=== PATIENT | male | born 1990 | race Caucasian/White ===

== ENCOUNTER 2017-07-30 16:07 | Emergency (ER) | payer SELFPAY ==
[~2017-07-30] VITALS: Ht 185.4 cm; Wt 54.4 kg
[~2017-07-30 16:07] MED LIST: CEPH500C PO; HYDR-1231 PO; HYDR-3820 PO; NAPR-243 PO; TRM50T PO
--- NOTE | 2017-07-30 18:47 | ED Back Pain ---
General Chief Complaint: Back Problems Stated Complaint: LOWER BACK PAIN Nursing Triage Note: Stomach pain starting early Sunday am, low back pain, stuffy/runny nose, weakness. Nursing Sepsis Screen: No Definite Risk Source of Information: Patient Exam Limitations: No Limitations History of Present Illness Time Seen by Provider: 18:39 Initial Comments Patient presents to ER by private conveyance with chief complaint of back pain that starts deep in his back and radiates sometimes to his left lower quadrant of abdomen. Says the pain is not associated with his spine or with any injury or recent trauma. She never had appendicitis before. He has no nausea vomiting or constipation. He says last 2 days is when this started and is also had some loose stools. No blood in stool no black tarry stool. He says he has no recent travel outside the [place] or sick contacts. He denies dysuria or history of kidney stones. He denies discharge. States she's taken yesterday and today off from work and needs a note. Allergies and Home Medications Allergies Coded Allergies: No Known Drug Allergies (Unverified , 10/01/15) Home Medications Hydrocodone/Acetaminophen 1 Each Tablet, 1-2 EA PO Q4H PRN for PAIN for 30 Days Prescribed by: ANJUM MONSON on 10/03/15 0807 Constitutional: No chills, No diaphoresis EENTM: No ear pain, No blurred vision Respiratory: No cough, No dyspnea on exertion Cardiovascular: No chest pain, No palpitations Gastrointestinal: see HPI, No constipation, No diarrhea, No nausea, No vomiting Genitourinary: No discharge, No dysuria Musculoskeletal: No muscle stiffness, No neck pain Skin: No pruritus, No rash Past Oooczru-Gaqxpe-Uetsyg Hx Patient Social History Alcohol Use: Occasionally Uses Recreational Drug Use: Yes (tobacco, etoh on occ) Smoking Status: Current Everyday Smoker Recent Foreign Travel: No Contact w/Someone Who Travel: No Recent Infectious Disease Expo: No Immunizations Up To Date Tetanus Booster (TDap): Less than 5yrs Surgeries History of Surgeries: No Respiratory History of Respiratory Disorde: No Cardiovascular History of Cardiac Disorders: No Neurological History of Neurological Disord: No Reproductive System Hx Reproductive Disorders: No Sexually Transmitted Disease: No HIV/AIDS: No Gastrointestinal History of Gastrointestinal Di: No Musculoskeletal History of Musculoskeletal Dis: Yes Musculoskeletal Disorders: Fractures Endocrine History of Endocrine Disorders: No Cancer History of Cancer: No Psychosocial History of Psychiatric Problem: Yes Behavioral Health Disorders: ADD/ADHD Integumentary History of Skin or Integumenta: No Blood Transfusions History of Blood Disorders: No Adverse Reaction to a Blood Tr: No Family Medical History Significant Family History: No Pertinent Family Hx Family Medial History: Patient reports no known family medical history. Physical Exam Vital Signs Vital Sign - Last 12Hours 07/30/17 17:40 Temp 98.4 Pulse 69 Resp 20 B/P (MAP) 104/59 Pulse Ox 98 O2 Delivery Room Air Capillary Refill : Less Than 3 Seconds General Appearance: WD/WN, Mild Distress HEENT: PERRL/EOMI, Pharynx Normal Neck: Non Tender, Supple Cardiovascular: Regular Rate, Rhythm, No Edema Respiratory: Chest Non Tender, Lungs Clear Gastrointestinal: Normal Bowel Sounds, No Organomegaly, Soft, Tenderness (left lower quadrant and left flank) Extremity: Normal Capillary Refill, Normal Inspection, Non Tender Neurologic/Psychiatric: Alert, Oriented x3 Skin: Normal Color, Warm/Dry Progress/Results/Core Measures Results/Orders Vital Signs/I&O Vital Sign - Last 12Hours 07/30/17 07/30/17 17:40 18:58 Temp 98.4 98.4 Pulse 69 69 Resp 20 20 B/P (MAP) 104/59 Pulse Ox 98 98 O2 Delivery Room Air Blood Pressure Mean: 74 Progress Note : Time: 05:00 Progress Note Patient was agreement with workup plan but when lab went back to draw his blood the patient had already left AMA. Departure Impression Impression: Primary Impression: Back pain Qualified Codes: M54.5 - Low back pain Additional Impression: Abdominal pain Qualified Codes: R10.32 - Left lower quadrant pain Disposition: Condition: Against Medical Advice Departure-Patient Inst. Decision time for Depature: 19:00 Referrals: [place],LOCAL PHYSICIAN (PCP/Family) Primary Care Physician PABLO BRENNAN Jul 30, 2017 18:47
[2017-07-30 18:58] VITALS: BP 104/59
--- OUTSIDE RECORDS SUMMARY | 2017-07-31 05:12 | XMS REPORT ---
Author Author CYNTHIA WEINER [facility] Address [address] [place] [address] Care Team Providers Care Shoe Parts Caser Name Role Phone CYNTHIA WEINER Unavailable PROBLEMS Type Condition ICD9-CM Code [id number] Code Onset Dates Condition Status SNOMED Code Problem Bipolar disorder, unspecified F31.9 Active 36960600 Problem Generalized anxiety disorder F41.1 Active 16998063 Assessment Bipolar disorder, unspecified F31.9 Jun, Active [id number] ALLERGIES No Known Allergies SOCIAL HISTORY No smoking Hx information available PLAN OF CARE VITAL SIGNS MEDICATIONS No Known Medications RESULTS No Results PROCEDURES Procedure Date Ordered Related Diagnosis Body Site Psych diagnostic evaluation, established patient Jul 04, 2016 IMMUNIZATIONS No Known Immunizations
--- OUTSIDE RECORDS SUMMARY | 2017-07-31 05:12 | XMS REPORT ---
Author Author FABIAN MARC [facility] eClinicalWorks Address Unknown Phone Unavailable Care Team Providers Care Laborer Aquatic Life Name Role Phone FABIAN MARC Unavailable Allergies No Known Allergies Problems Problem Type Condition Code Onset Dates Condition Status Problem Social anxiety disorder F40.10 Active Problem Anxiety F41.9 Active Problem Intermittent explosive disorder in adult F63.81 Active Problem Bipolar disorder, unspecified F31.9 Active Problem Generalized anxiety disorder F41.1 Active Medications No Known Medications Results No Known Results Summary Purpose eClinicalWorks Submission
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
--- OUTSIDE RECORDS SUMMARY | 2017-07-31 05:13 | XMS REPORT ---
Author Author CYNTIHA WEINER [facility] eClinicalWorks Address Unknown Phone Unavailable Care Team Providers Care Materials Scheduler Name Role Phone CYNTHIA WEINER Unavailable Allergies No Known Allergies Problems Problem Type Condition Code Onset Dates Condition Status Problem Generalized anxiety disorder F41.1 Active Assessment Bipolar disorder, unspecified F31.9 Active Problem Bipolar disorder, unspecified F31.9 Active Assessment Generalized anxiety disorder F41.1 Active Medications No Known Medications Procedures Procedure Coding System Code Date Psychotherapy, patient &/family, 30 minutes, established patient CPT-4 50012 Jul 18, 2016 Results No Known Results Summary Purpose eClinicalWorks Submission
--- OUTSIDE RECORDS SUMMARY | 2017-07-31 05:13 | XMS REPORT ---
Author Author SAÚL NIÑO Organization e[employer] Address Unknown Phone Unavailable Care Team Providers Care Job Counselor Name Role Phone SAÚL NIÑO CP Unavailable Allergies, Adverse Reactions, Alerts Substance Reaction Event Type N.K.D.A. Info Not Available Non Drug Allergy Problems Problem Type Condition Code Onset Dates Condition Status Problem Social anxiety disorder F40.10 Active Problem Anxiety F41.9 Active Problem Intermittent explosive disorder in adult F63.81 Active Assessment Intermittent explosive disorder in adult F63.81 Active Assessment Anxiety F41.9 Active Problem Bipolar disorder, unspecified F31.9 Active Problem Generalized anxiety disorder F41.1 Active Medications Medication Code System Code Instructions Start Date End Date Status Dosage Vistaril [facility] [address]-98 25 MG Orally every 8 hrs Jul 25, 2016 1 capsule as needed Depakote ER [facility] [address]-77 500 MG Orally Once a day at bedtime Jul 25, 2016 1 tablet Procedures Procedure Coding System Code Date Office Visit, Est Pt., Level 3 CPT-4 46541 Jul 25, 2016 Vital Signs Date/Time: Jul 25, 2016 Cardiac Monitoring Heart Rate 92 bpm Weight 120.9 lbs Height 72.0 in BMI 16.40 Index Blood Pressure Diastolic 61 mmHg Blood Pressure Systolic 95 mmHg Results No Known Results Summary Purpose eClinicalWorks Submission
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
== END 2017-07-30 18:58 | disposition left against medical advice (07) ==
LOC: EDUNIT# 16:07 → ER 16:09
DX: M54.5 Low back pain (principal); R10.32 Left lower quadrant pain; F90.9 Attention-deficit hyperactivity disorder, unspecified type; F17.200 Nicotine dependence, unspecified, uncomplicated; Z87.81 Personal history of (healed) traumatic fracture
CPT/HCPCS: 99281

== ENCOUNTER 2018-04-15 09:52 | Emergency (ER) | payer SELFPAY ==
[~2018-04-15] VITALS: Ht 190.5 cm; Wt 54.4 kg
[2018-04-15 09:58] VITALS: BP 0/0
== END 2018-04-15 09:58 | disposition left against medical advice (07) ==
LOC: EDUNIT# 09:52 → ER 09:53
DX: R68.84 Jaw pain (principal); V18.4XXA Pedal cycle driver injured in noncollision transport accident in traffic accident, initial encounter
CPT/HCPCS: 99283

== ENCOUNTER 2018-07-01 15:15 | Emergency (ER) | payer SELFPAY ==
[~2018-07-01] VITALS: Ht 190.5 cm; Wt 59.2 kg
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
--- NOTE | 2018-07-01 17:02 | Diagnostic Imaging Report ---
INDICATION: Numbness of the ankles. COMPARISON: 10/01/2015. FINDINGS: Three views of the left ankle were obtained. There is no acute fracture or dislocation. No focal osseous lesions are seen. The surrounding soft tissue structures are unremarkable. There are no radiopaque foreign bodies. IMPRESSION: 1. No acute fracture or dislocation in the left ankle. Dictated by: Dictated on workstation # [id number]
--- NOTE | 2018-07-01 17:06 | Diagnostic Imaging Report ---
INDICATION: Left foot numbness. FINDINGS: Three views of the left foot show no fracture, dislocation or radiopaque foreign object. IMPRESSION: Negative left foot. Dictated by: Dictated on workstation # [id number]
[2018-07-01 17:15] VITALS: BP 121/78
== END 2018-07-01 17:10 | disposition home or self-care (01) ==
LOC: EDUNIT# 15:15 → ER 15:16
DX: S90.32XA Contusion of left foot, initial encounter (principal); F90.9 Attention-deficit hyperactivity disorder, unspecified type; F10.10 Alcohol abuse, uncomplicated; X58.XXXA Exposure to other specified factors, initial encounter
CPT/HCPCS: 73610; 73630

== ENCOUNTER 2019-07-29 06:30 | Emergency (ER) | payer SELFPAY ==
[~2019-07-29] VITALS: Ht 185 cm; Wt 68.0 kg
[2019-07-29] MEDS ORDERED: ALPRAZolam 0.25 MG (XANAX) TAB PO ONE (07:00)
[2019-07-29] MEDS ORDERED: TETANUS,DIPTH,PERTUSS P/F (BOOSTRIX) 0.5 ML VIAL IM ONE (07:00)
[2019-07-29] MEDS ORDERED: CEPHALEXIN 250 MG (KEFLEX) CAP PO ONE (07:00)
[2019-07-29] MEDS ORDERED: CEPH-507 PO ×2 (07:02→07:09)
--- NOTE | 2019-07-29 07:03 | ED General ---
General Chief Complaint: Upper Extremity Stated Complaint: BOTH HANDS SWOLLEN,LAC ON LEFT PINKIE Source of Information: Patient Exam Limitations: No Limitations History of Present Illness Date Seen by Provider: Jul 29, 2019 Time Seen by Provider: 06:45 Initial Comments This 29-year-old man presents to the emergency room with complaints of pain and swelling in his hands, particularly the left hand. He has a laceration from a machete on his left fifth finger that was acquired accidentally last night. The pain and swelling of the left hand has started since then. He has a nodular area of erythema and discomfort along the left wrist as well. He denies any fevers. He has rather agitated and highly irritable. He reports being released from assisted recently. He has been without his psychiatric medication since then. He states they are available to roller picker at the pharmacy but he has not picked them up yet. Patient arrived with multiple knives in his possession. Allergies and Home Medications Allergies Coded Allergies: No Known Drug Allergies (Unverified , 10/01/15) Home Medications Cephalexin 500 Mg Capsule, 500 MG PO QID Prescribed by: BILL DUFFY on 07/29/19 0709 Hydrocodone/Acetaminophen 1 Each Tablet, 1-2 EA PO Q4H PRN for PAIN Prescribed by: ANJUM MONSON on 10/03/15 0807 Patient Home Medication List Home Medication List Reviewed: Yes Review of Systems Review of Systems Constitutional: no symptoms reported EENTM: no symptoms reported Respiratory: no symptoms reported Cardiovascular: no symptoms reported Gastrointestinal: no symptoms reported Genitourinary: no symptoms reported Musculoskeletal: no symptoms reported Skin: see HPI Psychiatric/Neurological: See HPI Hematologic/Lymphatic: No Symptoms Reported Immunological/Allergic: no symptoms reported Past [id number]-[id number] Hx Past Med/Social Hx: Reviewed and Corrections made Patient Social History Alcohol Beverage of Choice: Beer Type Used: Cigarettes Recent Foreign Travel: No Contact w/Someone Who Travel: No Recent Hopitalizations: No Immunizations Up To Date Tetanus Booster (TDap): Less than 5yrs Seasonal Allergies Seasonal Allergies: No Past Medical History Surgeries: No Respiratory: No Cardiac: No Neurological: No Reproductive Disorders: No Sexually Transmitted Disease: No HIV/AIDS: No Gastrointestinal: No Musculoskeletal: Yes Fractures Endocrine: No Cancer: No Psychosocial: Yes ADD/ADHD, Bipolar, Schizophrenia Integumentary: No Blood Disorders: No Adverse Reaction/Blood Tranf: No Family Medical History Patient reports no known family medical history. No Pertinent Family Hx Physical Exam Vital Signs Vital Signs - First Documented 07/29/19 06:43 Temp 36.7 Pulse 75 Resp 20 B/P (MAP) 141/94 (110) Pulse Ox 98 Capillary Refill : Height, Weight, BMI Height: 6'3.00" Weight: 130lbs. 7.0oz. 59.853837nz; 15.43 BMI Method:Stated General Appearance: WD/WN, Anxious, Thin HEENT: PERRL/EOMI, Normal ENT Inspection Neck: Normal Inspection Respiratory: Lungs Clear, Normal Breath Sounds, No Accessory Muscle Use Cardiovascular: Regular Rate, Rhythm, No Edema, No Murmur, Normal Peripheral Pulses Extremity: Other (Mild erythema and swelling of the left hand. Approximately 1 cm laceration on the distal fifth finger. There is an area of nodular erythema and tenderness about 2-3 cm in diameter on the wrist. No fluctuance to suggest abscess) Neurologic/Psychiatric: Alert, Oriented x3, No Motor/Sensory Deficits, tip mender II- XII Norm as Tested, Other (Agitated, anxious) Skin: Normal Color, Warm/Dry, Other (See extremity exam above.) Progress/Results/Core Measures Suspected Sepsis SIRS Temperature: Pulse: Respiratory Rate: Blood Pressure / Mean: Results/Orders My Orders Orders - BILL LEON MD Alprazolam Tablet (Xanax Tablet) (07/29/19 07:00) Dipht,Pertuss(Acell),Tet Adult (Boostrix (07/29/19 07:00) Cephalexin Capsule (Keflex Capsule) (07/29/19 07:00) Vital Signs/I&O Capillary Refill : Progress Note : Progress Note Knives were confiscated and held at the nurses station during the ER visit. Xanax was given for anxiety and agitation. [place] police were called in to be on standby due to patient's agitation. He did not seem predictively and did arrive to the ER with knives. We were able to calm the patient with verbal reassurance. A tetanus booster was administered. He was treated with Keflex for cellulitis. Patient departed without incident. Departure Impression Primary Impression: Laceration of finger Qualified Codes: S61.217A - Laceration without foreign body of left little finger without damage to nail, initial encounter Additional Impressions: Cellulitis of left hand Agitation Disposition: 01 HOME, SELF-CARE Condition: Improved Departure-Patient Inst. Decision time for Depature: 07:01 Referrals: [facility] (PCP) Primary Care Physician SUMEET GARCIA (Family) Primary Care Physician Patient Instructions: Cellulitis and Erysipelas (Skin Infections) Add. Discharge Instructions: Complete the entire course of your antibiotic as prescribed. Return to care if you have worsening symptoms despite taking the antibiotic, especially if you develop fevers over 100. Please fill your usual medications and start them as soon as possible. Return to care if you have any other problems or concerns. All discharge instructions reviewed with patient and/or family. Voiced understanding. Scripts Cephalexin (Keflex) 500 Mg Capsule 500 MG PO QID, #30 CAP Prov: BILL LEON MD 07/29/19 Copy Copies To 1: LEIDY LAZARO JOSHUA T MD Jul 29, 2019 07:03
[2019-07-29 07:12] VITALS: BP 141/94
== END 2019-07-29 07:12 | disposition home or self-care (01) ==
LOC: EDUNIT# 06:30 → ER 06:37
DX: S61.217A Laceration without foreign body of left little finger without damage to nail, initial encounter (principal); L03.114 Cellulitis of left upper limb; R45.1 Restlessness and agitation; F90.9 Attention-deficit hyperactivity disorder, unspecified type; F31.9 Bipolar disorder, unspecified; F20.9 Schizophrenia, unspecified; Z23 Encounter for immunization; W26.8XXA Contact with other sharp object(s), not elsewhere classified, initial encounter
CPT/HCPCS: 90715; 99283